=== PATIENT | female | born 1950 | race Caucasian/White ===

== ENCOUNTER → 2016-08-26 | Outpatient (CLI) | payer OTHER ==
[~2016-08-26] MED LIST: HYDR12.57 PO; LEVO50TA4 PO; MULTTAB67 PO; TAB-TAB PO
== END ==
LOC: CLAB 12:33
PROVIDERS: ATTEND Family Medicine
DX: I10 Essential (primary) hypertension (principal); E78.5 Hyperlipidemia, unspecified; N64.59 Other signs and symptoms in breast
CPT/HCPCS: 36415; 84443

== ENCOUNTER → 2016-09-27 | Outpatient (CLI) | payer OTHER ==
[~2016-09-27] MED LIST changes: -TAB-TAB PO
[2016-09-27 13:14] LABS: AUTOMATED NEUTROPHIL # 3.6 TH/MM3 (1.8-7.7); BASOPHIL # 0.1 TH/MM3 (0-0.2); BASOPHIL % 2.8 % (0.0-2.0); EOSINOPHIL # 0.2 TH/MM3 (0-0.4); EOSINOPHIL % 4.6 % (0.0-4.0); HEMATOCRIT 44.3 % (35.0-46.0); HEMO FLAGS DIFF FINAL; LYMPH % 16.5 % (9.0-44.0); LYMPHOCYTE # 0.9 TH/MM3 (1.0-4.8); MEAN CELL VOLUME 92.5 FL (80.0-100.0); MEAN CORPUSCULAR HEMOGLOBIN 30.9 PG (27.0-34.0); MEAN CORPUSCULAR HGB CONC 33.4 % (32.0-36.0); MONO % 7.8 % (0.0-8.0); NEUT % 68.3 % (16.0-70.0); PLATELET COUNT 230 TH/MM3 (150-450); RED BLOOD COUNT 4.79 MIL/MM3 (4.00-5.30); RED CELL DISTRIBUTION WIDTH 13.5 % (11.6-17.2); WHITE BLOOD COUNT 5.2 TH/MM3 (4.0-11.0)
[2016-09-27 13:44] LABS: ALT (GPT) 16 U/L (10-53); ANION GAP 9 MEQ/L (5-15); AST (GOT) 21 U/L (15-37); BICARBONATE 30.4 MEQ/L (21.0-32.0); BLOOD UREA NITROGEN 14 MG/DL (7-18); CHLORIDE 101 MEQ/L (98-107); GLOMERULAR FILTRATION RATE 74 ML/MIN (>89); GLUCOSE,FASTING 85 MG/DL (74-99); POTASSIUM 3.7 MEQ/L (3.5-5.1); SODIUM (NA) 140 MEQ/L (136-145)
[2016-09-27 13:48] LABS: ALKALINE PHOSPHATASE 88 U/L (45-117); HDL CHOLESTEROL 56.7 MG/DL (40.0-60.0); LDL CHOLESTEROL 96 MG/DL (0-99); TOTAL BILIRUBIN ADULT 0.7 MG/DL (0.2-1.0)
== END ==
LOC: PLAB 09:38
PROVIDERS: ATTEND Family Medicine
DX: I10 Essential (primary) hypertension (principal); E78.5 Hyperlipidemia, unspecified; N64.59 Other signs and symptoms in breast
CPT/HCPCS: 36415; 80053; 80061; 85025

== ENCOUNTER → 2017-03-12 | Outpatient (CLI) | payer MEDICARE, OTHER ==
[2017-03-12 16:02] LABS: BLOOD, URINE NEG (NEG); CALCIUM OXALATE CRYSTALS,URINE OCC /hpf; GLUCOSE,URINE NEG (NEG); KETONE, URINE NEG (NEG); MUCUS URINE FEW /lpf (OCC); NITRITE,URINE NEG (NEG); SQUAMOUS EPITHELIAL CELL URINE 2 /hpf (0-5); URINE COLOR YELLOW (YELLW/STRAW)
[2017-03-12 16:22] LABS: ANION GAP 4 MEQ/L (5-15); AST (GOT) 20 U/L (15-37); BICARBONATE 32.3 MEQ/L (21.0-32.0); BLOOD UREA NITROGEN 15 MG/DL (7-18); CHLORIDE 103 MEQ/L (98-107); GLOMERULAR FILTRATION RATE 76 ML/MIN (>89); GLUCOSE,FASTING 102 MG/DL (74-99); POTASSIUM 3.6 MEQ/L (3.5-5.1); SODIUM (NA) 139 MEQ/L (136-145)
[2017-03-12 16:32] LABS: ALKALINE PHOSPHATASE 89 U/L (45-117); ALT (GPT) 20 U/L (10-53); HDL CHOLESTEROL 53.6 MG/DL (40.0-60.0); LDL CHOLESTEROL 105 MG/DL (0-99); TOTAL BILIRUBIN ADULT 0.6 MG/DL (0.2-1.0)
[2017-03-15 11:52] LABS: IGA SERUM 446 mg/dL (81-463)
[2017-03-18 03:50] LABS: ENDOMYSIAL AB TITER ND (<1:5); TISSUE TRANSGLUTAMINASE AB LESS THAN 1 U/mL (())
== END ==
LOC: PLAB 11:11
PROVIDERS: ATTEND Internal Medicine
DX: E03.9 Hypothyroidism, unspecified (principal); I10 Essential (primary) hypertension; R63.6 Underweight
CPT/HCPCS: 36415; 80053; 80061; 81001; 82784; 83516; 84443

== ENCOUNTER 2018-07-19 13:20 | Observation (INO) ==
[2018-07-19] MEDS ORDERED: Sod Chloride 0.9% Inj 1,000 ML IV.SIG ONE (14:25)
[2018-07-19 15:05] LABS: Baso # (Auto) 0.1 th/mm3 (0.0-0.2); Baso % (Auto) 1.1 % (0.0-2.0); Eos # (Auto) 0.1 th/mm3 (0.0-0.4); Eos % (Auto) 0.8 % (0.0-4.0); Hematocrit 43.6 % (35.0-46.0); Hemoglobin 14.9 gm/dL (11.6-15.3); Lymph # (Auto) 0.6 th/mm3 (1.0-4.8); Lymph % (Auto) 4.7 % (9.0-44.0); Mean Corpuscular HGB Conc 34.2 % (32.0-36.0); Mean Corpuscular Hemoglobin 31.8 pg (27.0-34.0); Mean Corpuscular Volume 92.8 fL (80.0-100.0); Mean Platelet Volume 10.9 fL (7.0-11.0); Mono # (Auto) 0.4 th/mm3 (0.0-0.9); Neut # (Auto) 10.7 th/mm3 (1.8-7.7); Neut % (Auto) 90.4 % (16.0-70.0); Platelet Count 240 th/mm3 (150-450); Red Cell Distribution Width 12.7 % (11.6-17.2); White Blood Count 11.8 th/mm3 (4.0-11.0)
[2018-07-19 15:28] LABS: Anion Gap 7 meq/L (5-15); Blood Urea Nitrogen 16 mg/dL (7-18); Calcium 8.8 mg/dL (8.5-10.1); Carbon Dioxide 27.1 meq/L (21.0-32.0); Chloride 105 meq/L (98-107); Glomerular Filtration Rate 85 mL/min (>89); Glucose,Random 118 mg/dL (74-106); Sodium 139 meq/L (136-145)
[2018-07-19 15:31] LABS: Potassium 4.6 meq/L (3.5-5.1)
--- NOTE | 2018-07-19 15:57 | ED ---
HPI General Chief Complaint: Syncope Stated Complaint: Syncope Time Seen by Provider: 07/19/18 14:08 Source: patient and EMS Mode of arrival: EMS Limitations: no limitations History of Present Illness HPI narrative: 68 yo F arrives by EMS following near syncope event at [facility] today. Pt was pale, lightheaded and with perioral cyanosis. Duration approx 10 minutes. + Urge to defect prior to symptom onset resolved prior to EMS arrival. No CP or shortness of breath. Pt reports being in her normal state of health in the preceding several days. No bloody stool or black stool reported. Compliance with synthroid reported. no similar prior events. no similar prior episodes. no specific complaints offered today in ED. No actual LOC on scene. Related Data Home Medications Medication Instructions Recorded Confirmed levothyroxine [Synthroid] 12.5 mcg PO DAILY 07/19/18 07/19/18 Allergies Allergy/AdvReac Type Severity Reaction Status Date / Time No Known Allergies Allergy Verified 07/19/18 15:00 Review of Systems ROS: all other systems reviewed are negative [facility] Medical History Medical History Hx of thyroid disease (Acute) Social History Social History Substance History: No History of Abuse Smoking Status: Never smoker How Often Do You Have a Drink Containing Alcohol: Never Recent Travel in [place] within the Last 8 Weeks: No Recent Out of Country Travel within the Last 8 Weeks: No Immunization History Tetanus Immunization: <5 Years Exam Narrative Exam Narrative: GENERAL: 68 yo F pleasant, WNWD, NAD SKIN: Focused skin assessment warm/dry. HEAD: Atraumatic. Normocephalic. EYES: Pupils equal and round. No scleral icterus. No injection or drainage. ENT: No nasal bleeding or discharge. Mucous membranes pink and moist. NECK: Trachea midline. No JVD. CARDIOVASCULAR: Regular rate and rhythm. No murmur appreciated. RESPIRATORY: No accessory muscle use. Clear to auscultation. Breath sounds equal bilaterally. GASTROINTESTINAL: Abdomen soft, non-tender, nondistended. Hepatic and splenic margins not palpable. MUSCULOSKELETAL: No obvious deformities. No clubbing. No cyanosis. No edema. NEUROLOGICAL: Awake and alert. No obvious cranial nerve deficits. Motor grossly within normal limits. Normal speech. PSYCHIATRIC: Appropriate mood and affect; insight and judgment normal. Course Initial Documented Vital Signs Temperature 98.6 F 07/19/18 14:25 Pulse Rate 89 07/19/18 14:25 Respiratory Rate 25 H 07/19/18 14:25 Blood Pressure 165/85 H 07/19/18 14:25 Pulse Oximetry 100 07/19/18 14:25 Last Documented Vital Signs Temperature 98.6 F 07/19/18 14:25 Pulse Rate 92 H 07/19/18 18:00 Respiratory Rate 26 H 07/19/18 17:00 Blood Pressure 181/85 H 07/19/18 16:16 Pulse Oximetry 98 07/19/18 18:00 Medical Decision Making MDM Narrative Medical decision making narrative: ekg sinus, rate 88, normal axis/intervals pt resting comfortably in ED at time of reassessment, 429pm. HR has jumped to the 110 +/- five range. BP has been elevated at approx 180/80 Pt remains asymptomatic here Numerous prior visits on record for palpitations and weakness Persistent tachycardia here observed four hours into stay much against expectations. CT pulmonary angiogram added on. CT shows no PE. d/w Dr Oakley, concern is near syncope event with tachycardia unexplained, persistent without improvement w IVF pt agreeable with plan Medical Screen Exam Complete: Yes Emergency Medical Condition: Yes Lab Data Result diagrams: 07/19/18 14:50 07/19/18 14:50 Lab Results 07/19/18 07/19/18 07/19/18 Range/Units 14:50 14:50 15:29 WBC 11.8 H (4.0-11.0) th/mm3 RBC 4.70 (4.00-5.30) mil/mm3 Hgb 14.9 (11.6-15.3) gm/dL Hct 43.6 (35.0-46.0) % MCV 92.8 (80.0-100.0) fL MCH 31.8 (27.0-34.0) pg MCHC 34.2 (32.0-36.0) % RDW 12.7 (11.6-17.2) % Plt Count 240 (150-450) th/mm3 MPV 10.9 (7.0-11.0) fL Neut % (Auto) 90.4 H (16.0-70.0) % Lymph % (Auto) 4.7 L (9.0-44.0) % Rhea % (Auto) 3.0 (0.0-8.0) % Eos % (Auto) 0.8 (0.0-4.0) % Baso % (Auto) 1.1 (0.0-2.0) % Neut # (Auto) 10.7 H (1.8-7.7) th/mm3 Lymph # (Auto) 0.6 L (1.0-4.8) th/mm3 Rhea # (Auto) 0.4 (0.0-0.9) th/mm3 Eos # (Auto) 0.1 (0.0-0.4) th/mm3 Baso # (Auto) 0.1 (0.0-0.2) th/mm3 WBC Differential . Differential Comment Auto diff final Sodium 139 (136-145) meq/L Potassium 4.6 (3.5-5.1) meq/L Chloride 105 (98-107) meq/L Carbon Dioxide 27.1 (21.0-32.0) meq/L Anion Gap 7 (5-15) meq/L BUN 16 (7-18) mg/dL Creatinine 0.69 (0.50-1.00) mg/dL Estimated GFR 85 L (>89) mL/min Random Glucose 118 H (74-106) mg/dL Calcium 8.8 (8.5-10.1) mg/dL Troponin I Less than 0.02 L (0.02-0.05) ng/mL Urine Color Straw (Yellw/Straw) Urine Clarity Clear (Clear) Urine pH 7.0 (5.0-8.5) Ur Specific [place] 1.006 (1.002-1.035) Urine Protein Negative (Neg-Trace) mg/dL Urine Glucose (UA) Negative (Negative) mg/dL Urine Ketones Trace H (Negative) mg/dL Urine Occult Blood Negative (Negative) Urine Nitrate Negative (Negative) Urine Bilirubin Negative (Negative) Urine Urobilinogen Less than 2 (Less than 2) mg/dL Ur Leukocyte Esterase Trace H (Negative) Urine RBC 1 (0-3) /hpf Urine WBC 1 (0-5) /hpf Ur Squamous Epith Cells <1 (0-5) /hpf Urine Mucus Few H (Occasional) /lpf Micro UA Comment Culture not ind Ur Microscopic Review Not Reportable Urine Culture Comments Culture not ind Imaging Data Radiologist's impression: Chest CTA 07/19/18 17:40 CONCLUSION: There is no evidence of PE for technique. There are tiny subcentimeter densities in both lungs some of them appear nodular probably areas of scar. Discharge Plan Discharge Disposition Patient Disposition: ED Admit(ED Internal Use Only) Discharge Order Discharge Orders: ED Use Only Admit Order (Routine); Ordered 07/19/18 Ordered By: Checo Humphrey Physicians Team ED Provider: Checo Humphrey Primary Care Provider: Zackary Miller Rxs /Orders / Referrals /Forms Prescriptions: No Action levothyroxine [Synthroid] 25 mcg Tablet 12.5 mcg PO DAILY RF: 0 Discharge Interventions Interventions: Vital Signs Last Done: 07/19/18 18:00 Status ED Status: With Doctor
[2018-07-19 16:25] LABS: Bilirubin,Urine Negative (Negative); Clarity,Urine Clear (Clear); Color,Urine Straw (Yellw/Straw); Glucose,Urine (UA) Negative (Negative); Leukocyte Esterase,Urine Trace (Negative); Mucus,Urine Few /lpf (Occasional); Nitrite,Urine Negative (Negative); Specific Gravity,Urine 1.006 (1.002-1.035); Squamous Epithelial Cell,Urine <1 /hpf (0-5)
--- NOTE | 2018-07-19 18:50 | CT ---
EXAM DATE: 07/19/2018 6:37 PM EST AGE/SEX: 68 years / Female INDICATIONS: Shortness of breath. CLINICAL DATA: This is the patient's initial encounter. Patient reports that signs and symptoms have been present for 1 day and indicates a pain score of 0/10. MEDICAL/SURGICAL HISTORY: . thyroid disease None. RADIATION DOSE: 4.71 CTDI (mGy) COMPARISON: No prior exams available for comparison. TECHNIQUE: Volumetric scanning was performed using a multi-row detector CT scanner during bolus infu deborah of 60 ml Omnipaque 350 (iohexol) nonionic water-soluble contrast as a single exam dose. The dwaine a was post processed with a variety of visualization algorithms including full volume maximum intensi ty projection and sliding thin slab reformation. Using automated exposure control and adjustment of the mA and/or kV according to patient size, radiation dose was kept as low as reasonably achievable t o obtain optimal diagnostic quality images. DICOM format image data is available electronically for review and comparison. FINDINGS: There are scattered areas of scarring in the periphery of the lungs bilaterally mainly on the left si de and bilateral lower lobes could be followed. Some of these areas are minimally nodular in appearan ce. There is no pleural effusion. No appreciable pathological adenopathy is seen within the mediast inum. There is no evidence of PE for technique. CONCLUSION: There is no evidence of PE for technique. There are tiny subcentimeter densities in bot h lungs some of them appear nodular probably areas of scar. Electronically signed by: Honey Wiley MD Board Certified Radiologist 07/19/2018 6:48 PM EST
[2018-07-19] MEDS ORDERED: Bisacodyl 10 MG Supp RECTAL PRN (19:10)
[2018-07-19] MEDS ORDERED: Acetaminophen 325 MG Tablet PO PRN (19:10)
--- NOTE | 2018-07-19 20:14 | P.HPIM ---
History of Present Illness Primary Care Physician: Zackary Miller MD History of Present Illness: This is a 68-year-old female with a PMH of Hypothyroidism who was brought to the ER by EMS after a near syncopal event at [employer] today. Patient states she was feeling fine this morning, however while at [employer] developed abdominal cramping w/ loose stool, nausea and dizziness followed by near syncopal event. States she was assisted to the floor by another [employer] member who put a damp towel on her neck. No LOC per patient. Denies h/o similar events. On arrival , BP 165/85, HR 89, O2 sat 100% on RA, Afebrile. While in the ER, patient developed persistent tachycardia with HR 120's despite IVF. WBC 11.8. GFR 85. Troponin 0 0.02. UA negative for UTI. CTA Chest no evidence for PE. Pt reports she was seen by PCP in July for thyroid results, told her levels too high and had dose decreased from 112mcg to 75mcg, has been on 75mcg since Jul 10. - Diagnosis (1) Near syncope (2) Dehydration (3) Tachycardia (4) Leukocytosis Review of Systems PAST FAMILY HISTORY: Reviewed. No h/o DM or CAD All other systems reviewed negative except as stated in HPI PMFSH - History History Provided By: Patient - Medical History Medical History: Medical History (Last Updated 07/19/18 @ 14:54 by Virginia Nogueira) Hx of thyroid disease - Tobacco History Smoking Status: Never smoker - Alcohol History How Often Do You Have a Drink Containing Alcohol: Never - Substance Use History Substance History: No History of Abuse - Travel History Recent Travel in the [place] Within the Last 8 Weeks: No Recent Travel Out of the Country Within the Last 8 Weeks: No - Immunization History Tetanus Immunization: <5 Years Medications and Allergies Active Medications: Active Medications Acetaminophen (Tylenol) 650 mg PO Q4H PRN PRN Reason: Temp > 100.4 Al Hydroxide/Mg Hydroxide (Milk Of Magnesia Liq) 30 ml PO Q12H PRN PRN Reason: Mild Constipation Bisacodyl (Dulcolax Supp) 10 mg RECTAL DAILY PRN PRN Reason: SEVERE CONSITIPATION Sodium Chloride (Ns Inj) 1,000 mls @ 100 mls/hr IV.CONT .Q10H ARCHANA Lactulose (Lactulose Liq) 30 ml PO DAILY PRN PRN Reason: SEVERE CONSITIPATION Ondansetron HCl (Zofran Inj) 4 mg IV.PUSH Q6H PRN PRN Reason: NAUSEA OR VOMITING Senna/Docusate Sodium (Kari-Colace) 1 tab PO BID ARCHANA Sennosides (Senokot) 17.2 mg PO Q12H PRN PRN Reason: Moderate Constipation Sodium Chloride (Ns Flush) 2 ml IV.FLUSH BID ARCHANA Sodium Chloride (Ns Flush) 2 ml IV.FLUSH PRN PRN PRN Reason: FLUSH AFTER USING IV ACCESS Allergies Allergy/AdvReac Type Severity Reaction Status Date / Time No Known Allergies Allergy Verified 07/19/18 15:00 Home Medications Medication Instructions Recorded Confirmed Type levothyroxine [Synthroid] 12.5 mcg PO DAILY 07/19/18 07/19/18 History Exam Vital signs: Vital Signs 07/19/18 14:25 07/19/18 14:56 07/19/18 16:16 Temperature 98.6 F Pulse Rate 89 120 H Respiratory Rate 25 H 26 H Blood Pressure 165/85 H 181/85 H Pulse Oximetry 100 100 98 07/19/18 17:00 07/19/18 18:00 07/19/18 19:38 Temperature Pulse Rate 122 H 92 H 79 Respiratory Rate 26 H 16 Blood Pressure 157/68 H Pulse Oximetry 97 98 Intake & Output 07/19/18 07/19/18 07/20/18 06:59 18:59 06:59 Intake Total 1000 / 1000 50 / 50 Balance 1000 / 1000 50 / 50 Weight 40.823 kg Intake: IV 1000 / 1000 NS Inj 1,000 ML @ Wide Open IV. 1000 / 1000 SIG BOLUS ONE Rx#:[id number] Oral 50 / 50 Narrative: PE: GENERAL: Pleasant very thin middle-aged female in no acute distress. SKIN: Focused skin assessment warm and dry. HEENT: PERRLA, EOMI. No scleral icterus or conjunctival pallor. No lid lag or facial droop. CARDIOVASCULAR: Regular rate and rhythm. No obvious murmurs to auscultation. No chest tenderness to palpation. RESPIRATORY: No obvious rhonchi or wheezing. Clear to auscultation. Breath sounds equal bilaterally. GASTROINTESTINAL: Abdomen soft, non-tender, nondistended. BS normal. MUSCULOSKELETAL: Extremities without clubbing, cyanosis, or edema. No obvious deformities. NEUROLOGICAL: Awake, alert and oriented x4. No focal neurologic deficits. Moving both upper and lower extremities spontaneously. PSYCHIATRIC: Appropriate mood and affect. Insight and judgment normal. Results - Labs CBC & Chem 7: 07/19/18 14:50 07/19/18 14:50 Labs: Short CBC 07/19/18 Range/Units 14:50 WBC 11.8 H (4.0-11.0) th/mm3 Hgb 14.9 (11.6-15.3) gm/dL Hct 43.6 (35.0-46.0) % Plt Count 240 (150-450) th/mm3 BMP 07/19/18 14:50 Sodium 139 Potassium 4.6 Chloride 105 Carbon Dioxide 27.1 BUN 16 Creatinine 0.69 Calcium 8.8 Cardiac Enzymes 07/19/18 07/19/18 Range/Units 14:50 19:20 Troponin I Less than 0.02 L 0.03 (0.02-0.05) ng/mL Urine 07/19/18 Range/Units 15:29 Urine Color Straw (Yellw/Straw) Urine Clarity Clear (Clear) Urine pH 7.0 (5.0-8.5) Ur Specific [place] 1.006 (1.002-1.035) Urine Protein Negative (Neg-Trace) mg/dL Urine Glucose (UA) Negative (Negative) mg/dL - Imaging Impressions Chest CTA 07/19/18 17:40 CONCLUSION: There is no evidence of PE for technique. There are tiny subcentimeter densities in both lungs some of them appear nodular probably areas of scar. Caprini VTE Risk Assessment Caprini VTE Risk Assessment: No/Low Risk (score <= 1) Caprini Risk Assessment Model: Point Value = 1 Point Value = 2 Point Value = 3 Point Value = 5 Age 41-60 Minor surgery BMI > 25 kg/m2 Swollen legs Varicose veins or History of unexplained or recurrent spontaneous Oral contraceptives or hormone replacement Sepsis (< 1 month) Serious lung disease, including pneumonia (< 1 month) Abnormal pulmonary function Acute myocardial infarction Congestive heart failure (< 1 month) History of inflammatory bowel disease Medical patient at bed rest Age 61-74 Arthroscopic surgery Major open surgery (> 45 min) Laparoscopic surgery (> 45 min) Malignancy Confined to bed (> 72 hours) Immobilizing plaster cast Central venous access Age >= 75 History of VTE Family history of VTE Factor V Leiden Prothrombin [id number] Lupus anticoagulant Anticardiolipin antibodies Elevated serum homocysteine Heparin-induced thrombocytopenia Other congenital or acquired thrombophilia Stroke (< 1 month) Elective arthroplasty Hip, pelvis, or leg fracture Acute spinal cord injury (< 1 month) Prophylaxis Regimen: Total Risk Factor Score Risk Level Prophylaxis Regimen 0-1 Low Early ambulation 2 Moderate Order ONE of the following: *Sequential Compression Device (SCD) *Heparin 5000 units SQ BID 3-4 Higher Order ONE of the following medications: *Heparin 5000 units SQ TID *Enoxaparin/Lovenox 40 mg SQ daily (WT < 150 kg, CrCl > 30 mL/min) *Enoxaparin/Lovenox 30 mg SQ daily (WT < 150 kg, CrCl > 10-29 mL/min) *Enoxaparin/Lovenox 30 mg SQ BID (WT < 150 kg, CrCl > 30 mL/min) AND/OR *Sequential Compression Device (SCD) 5 or more Highest Order ONE of the following medications: *Heparin 5000 units SQ TID (Preferred with Epidurals) *Enoxaparin/Lovenox 40 mg SQ daily (WT < 150 kg, CrCl > 30 mL/min) *Enoxaparin/Lovenox 30 mg SQ daily (WT < 150 kg, CrCl > 10-29 mL/min) *Enoxaparin/Lovenox 30 mg SQ BID (WT < 150 kg, CrCl > 30 mL/min) AND *Sequential Compression Device (SCD) Assessment and Plan - Assessment (1) Near syncope Code(s): R55 - Syncope and collapse Status: Acute (2) Dehydration Code(s): E86.0 - Dehydration Status: Acute (3) Tachycardia Code(s): R00.0 - Tachycardia, unspecified Status: Acute (4) Leukocytosis Code(s): D72.829 - Elevated white blood cell count, unspecified Status: Acute - Plan A/P: 1. Near Syncope: acute onset of nausea, dizziness, diaphoresis followed by near syncopal event, likely vasovagal due to dehydration. No LOC or head trauma reported. Admit for Observation, telemetry, initial trop negative, check serial cardiac enzymes to eval for underlying ischemia. Check Echo to eval for valvular abnormality/cardiomyopathy. 2. Tachycardia: HR 120's while in ER despite IVF, likely due to dehydration, now normalized, HR 80-90's. CTA negative for PE. Will check TSH/T3/T4 in light of recent dose adjustment. 3. Leukocytosis: WBC 11.8, afebrile, possibly reactive however elevated neutrophil count. CTA negative for infiltrate, U/a negative, will repeat labs in am. 4. Dehydration: GFR 85, IVF for hydration, monitor I/O, repeat labs in am. 5. DVT Prophylaxis: SCD/Teds 6. Social work for d/c planning as needed. 7. Case discussed w/ ER physician at length, labs/records/imaging reviewed by me.
[2018-07-20] MEDS: Senna/Docusate Sodium 8.6/50 MG Tablet PO SCH ×4 (01:58→20:47)
[2018-07-20] MEDS: Sod Chloride 0.9% Inj 1,000 ML IV.CONT SCH ×3 (01:59→17:42)
[2018-07-20 04:11] LABS: Baso # (Auto) 0.1 th/mm3 (0.0-0.2); Baso % (Auto) 1.4 % (0.0-2.0); Eos # (Auto) 0.1 th/mm3 (0.0-0.4); Eos % (Auto) 1.3 % (0.0-4.0); Hemoglobin 13.2 gm/dL (11.6-15.3); Lymph # (Auto) 0.9 th/mm3 (1.0-4.8); Lymph % (Auto) 12.6 % (9.0-44.0); Mean Corpuscular HGB Conc 33.7 % (32.0-36.0); Mean Corpuscular Hemoglobin 31.2 pg (27.0-34.0); Mean Corpuscular Volume 92.7 fL (80.0-100.0); Mean Platelet Volume 10.3 fL (7.0-11.0); Mono # (Auto) 0.7 th/mm3 (0.0-0.9); Mono % (Auto) 9.9 % (0.0-8.0); Neut # (Auto) 5.1 th/mm3 (1.8-7.7); Neut % (Auto) 74.8 % (16.0-70.0); Platelet Count 221 th/mm3 (150-450); Red Blood Count 4.21 mil/mm3 (4.00-5.30); Red Cell Distribution Width 12.7 % (11.6-17.2); White Blood Count 6.9 th/mm3 (4.0-11.0)
[2018-07-20 04:58] LABS: Alanine Aminotransferase 18 U/L (10-53); Albumin 3.1 g/dL (3.4-5.0); Alkaline Phosphatase 83 U/L (45-117); Anion Gap 6 meq/L (5-15); Aspartate Aminotransferase 19 U/L (15-37); Blood Urea Nitrogen 9 mg/dL (7-18); Calcium 8.4 mg/dL (8.5-10.1); Carbon Dioxide 29.4 meq/L (21.0-32.0); Chloride 110 meq/L (98-107); Free T4 (Free Thyroxine) 1.43 ng/dL (0.76-1.46); Glomerular Filtration Rate Greater Than 89 mL/min (>89); Glucose,Random 88 mg/dL (74-106); Potassium 3.6 meq/L (3.5-5.1); Sodium 145 meq/L (136-145); Total Protein 7.1 g/dL (6.4-8.2); Triiodothyronine (T3) Free 3.09 pg/mL (2.18-3.98)
--- NOTE | 2018-07-20 13:11 | ECHRPT ---
Indication: SYNCOPE CONCLUSIONS Normal left ventricular size. Wall thickness is normal. The left ventricular systolic function is hyperdynamic with an estimated ejection fraction in the ra nge of 65- 70%. Moderate thickening of the mitral valve leaflets. Moderate mitral valve regurgitation. The estimated pulmonary arterial pressure is 43 mmHg. There is mild tricuspid valve regurgitation. Mild pulmonary valve regurgitation. BP: / HR: Rhythm: MEASUREMENTS (Male / Female) Normal Values Technical Quality: 2D ECHO LV Diastolic Diameter PLAX 3.1 cm 4.2 - 5.9 / 3.9 - 5.3 cm LV Systolic Diameter PLAX 2.0 cm IVS Diastolic Thickness 1.1 cm 0.6 - 1.0 / 0.6 - 0.9 cm LVPW Diastolic Thickness 0.8 cm 0.6 - 1.0 / 0.6 - 0.9 cm LV Relative Wall Thickness 0.6 RV Internal Dim ED PLAX 1.6 cm LVOT Diameter 1.5 cm LA Systolic Diameter LX 2.1 cm 3.0 - 4.0 / 2.7 - 3.8 cm LV Ejection Fraction MOD BP 75.0 % >= 55 % LV Ejection Fraction MOD 4C 73.3 % LV Ejection Fraction 4C AL 73.8 % LV Ejection Fraction MOD 2C 76.8 % LV Ejection Fraction 2C AL 77.7 % DOPPLER AV Peak Velocity 160.0 cm/s AV Peak Gradient 10.2 mmHg LVOT Peak Velocity 93.2 cm/s LVOT Peak Gradient 3.5 mmHg AV Area Cont Eq pk 1.0 cm Mitral E Point Velocity 101.0 cm/s Mitral A Point Velocity 128.0 cm/s Mitral E to A Ratio 0.8 LV E' Lateral Velocity 2.8 cm/s Mitral E to LV E' Lateral Ratio 35.7 LV E' Septal Velocity 3.8 cm/s Mitral E to LV E' Septal Ratio 26.6 TR Peak Velocity 289.0 cm/s TR Peak Gradient 33.4 mmHg Right Atrial Pressure 10.0 mmHg Pulmonary Artery Systolic Pressu 43.4 mmHg Right Ventricular Systolic Press 43.4 mmHg PV Peak Velocity 91.7 cm/s PV Peak Gradient 3.4 mmHg FINDINGS LEFT VENTRICLE Normal left ventricular size. Wall thickness is normal. The left ventricular systolic function is hyperdynamic with an estimated ejection fraction in the ra nge of 65- 70%. RIGHT VENTRICLE Normal right ventricular size and systolic function. LEFT ATRIUM The left atrial size is normal. RIGHT ATRIUM The right atrial size is normal. ATRIAL SEPTUM Normal atrial septal thickness without atrial level shunting by limited color doppler interrogation. AORTA The aortic root and proximal ascending aorta are normal in size on limited imaging. MITRAL VALVE Moderate thickening of the mitral valve leaflets. Moderate mitral valve regurgitation. AORTIC VALVE Trileaflet aortic valve. No aortic valve stenosis or regurgitation. TRICUSPID VALVE The estimated pulmonary arterial pressure is 43 mmHg. There is mild tricuspid valve regurgitation. PULMONARY VALVE Mild pulmonary valve regurgitation. VESSELS The inferior vena cava is normal in size. PERICARDIUM No pericardial effusion. Davis Reyes MD, FACC (Electronically Signed) Final Date:20 July 2018 13:10
--- NOTE | 2018-07-20 13:47 | ECG ---
Date Performed: 07/19/2018 Time Performed: 14:27:24 PTAGE: 68 years EKG: Sinus rhythm MODERATE ST DEPRESSION ABNORMAL ECG Compared to PREVIOUS TRACING sinus rate is faster ST depressions are slightly more prominent PREVIOU S TRACIN08/01/2015 10.15 DOCTOR: Joe Dockery Interpretating Date/Time 07/20/2018 13:47:47
--- NOTE | 2018-07-20 16:46 | P.PNIM ---
Subjective Interval history: Follow-up near syncope, palpitation, abdominal cramps Patient seen and examined while resting in bed. She reports severe abdominal cramping yesterday prior to her near syncopal episode. Patient reports she became diaphoretic felt dizzy and almost passed out but never lost consciousness. She states she has had 3 bowel movements today. She initially states diarrhea, however, when asked if stools are liquid or watery she states "no they are soft." Patiently currently denies any abdominal pain, nausea or vomiting. She also experienced palpitations yesterday, however, no further episodes today. Patient used to take levothyroxine 112 mcg p.o. daily but was recently told by her primary care provider to decrease to 100 mcg p.o. daily due to her TSH level being low. She states she has not yet have a chance to take the decreased dose. Patient denies any chest pain or shortness of breath. He further denies any lower extremity edema. Physical Exam Vital signs: Last Vital Signs Temp 97.5 F L 07/20/18 16:20 Pulse 74 07/20/18 16:20 Resp 20 07/20/18 16:20 BP 119/59 L 07/20/18 16:20 Pulse Ox 100 07/20/18 16:20 Intake & Output 07/18/18 07/19/18 07/20/18 07/21/18 06:59 06:59 06:59 06:59 Intake Total 1500 / 1500 1000 / 1000 Balance 1500 / 1500 1000 / 1000 Weight 40.8 kg Narrative: PE: GENERAL: Pleasant very thin middle-aged female in no acute distress. SKIN: Focused skin assessment warm and dry. HEENT: PERRLA, EOMI. No scleral icterus or conjunctival pallor. No lid lag or facial droop. CARDIOVASCULAR: Regular rate and rhythm. No obvious murmurs to auscultation. No chest tenderness to palpation. RESPIRATORY: No obvious rhonchi or wheezing. Clear to auscultation. Breath sounds equal bilaterally. GASTROINTESTINAL: Abdomen soft, non-tender, nondistended. BS normal. MUSCULOSKELETAL: Extremities without clubbing, cyanosis, or edema. No obvious deformities. NEUROLOGICAL: Awake, alert and oriented x4. No focal neurologic deficits. Moving both upper and lower extremities spontaneously. PSYCHIATRIC: Appropriate mood and affect. Insight and judgment normal. Results Labs CBC & Chem 7: 07/20/18 03:56 07/20/18 03:56 Imaging Imaging: Impressions Chest CTA 07/19/18 17:40 CONCLUSION: There is no evidence of PE for technique. There are tiny subcentimeter densities in both lungs some of them appear nodular probably areas of scar. Assessment and Plan (1) Near syncope: Code(s): R55 - Syncope and collapse Status: Acute (2) Dehydration: Code(s): E86.0 - Dehydration Status: Acute (3) Tachycardia: Code(s): R00.0 - Tachycardia, unspecified Status: Acute (4) Leukocytosis: Code(s): D72.829 - Elevated white blood cell count, unspecified Status: Acute Plan Patient is a pleasant 68-year-old female with a past medical history significant for hypothyroidism. She presented to the emergency department yesterday after a near syncopal episode while at [employer]. Patient reports severe abdominal cramping followed by diaphoresis and feeling dizzy and lightheaded. She denies passing out or losing consciousness. Near syncope -likely vasovagal -echo reviewed -> moderate mitral valve regurg and mild tricuspid and pulmonary valve regurgitation -IV fluids Tachycardia - resolved -continue tele monitoring Elevated troponin -troponin levels trending upward -repeat EKG -consult cardiology -echo -> normal left ventricular size, wall thickness normal, hyperdynamic left ventricular systolic function with EF 65-70% Hypothyroidism -TSH 0.005, free T4 1.43, free T3 3.09, TSH 3rd gen 0.446 -Levothyroxine dose recently decreased from 112 mcg to 100 mcg by her PCP. She had not yet started taking lower dose. Leukocytosis - resolved Dehydration - improved MDM: self Code: Full GI ppx: PO intake DVT ppx: SCD's, ambulation - Progress Note: Quality VTE Deep Vein Thrombosis/Pulmonary Embolism Present on Admission: No _ (1) Leukocytosis Qualifiers: Leukocytosis type:
[2018-07-20 20:43] VITALS: RESP 16
[2018-07-21] MEDS: Sod Chloride 0.9% Inj 1,000 ML IV.CONT SCH ×3 (01:22→13:23)
[2018-07-21 04:55] VITALS: O2SAT 98
--- NOTE | 2018-07-21 05:55 | MB ---
cc: Eliceo Humphrey DO DATE: 07/20/2018 REASON FOR CONSULTATION: Presyncope, elevated troponin. HISTORY OF PRESENT ILLNESS: Zonia Sage is a pleasant 68-year-old female who sees my partner, Dr. Dockery in the office and presented to [facility] after a near syncopal event. She originally saw Dr. Dockery for the first time complaining of atypical chest pain and also had orthostatic hypotension. She was scheduled to get a stress test, echo and carotids, but has not had those done. She was at [facility] yesterday morning and had a near syncopal event. She states that she had a normal morning and had a breakfast and had a bowel movement that morning. While in [facility], she was feeling fine and then started having some abdominal cramping with nausea and dizziness. She laid down on the floor and did not lose consciousness. She was given a damp towel and started feeling better. On arrival, blood pressure and heart rate were within normal range. Apparently, in the emergency room, she had . There are no rhythm strips or telemetry available at this time to review. Troponin elevated to 0.15. She had been given fluids and since that time, has been up and moving without any problems. She was recently told that her thyroid levels were too high and she was to decrease her dose and she had just recently decreased her dose the other day. PAST MEDICAL HISTORY: 1. Orthostatic hypotension. 2. Thyroid disease. SURGERIES: Denies. ALLERGIES: NO KNOWN DRUG ALLERGIES. MEDICATIONS: Synthroid 112 mcg, but supposed to decrease to 100 mcg. FAMILY HISTORY: Denies sudden cardiac within the family. SOCIAL HISTORY: Denies tobacco, alcohol or drug abuse. REVIEW OF SYSTEMS: Fourteen systems were reviewed including osteopathic. Pertinent positives and negatives above, otherwise negative. PHYSICAL EXAMINATION: VITAL SIGNS: Temperature 97.5, heart rate 74, blood pressure 119/59, respirations 20, pulse oximetry 100% on room air. GENERAL: The patient appears well, in no acute distress, alert, awake and oriented x 3. HEENT: Extraocular muscles intact. Mucous membranes moist. NECK: Supple. No JVD at 45 degrees. No carotid bruits heard bilaterally. Carotid upstroke is brisk in nature. HEART: Regular rate and rhythm. Positive first and second heart sounds with a II/ holosystolic murmur noted at the apex. LUNGS: Clear to auscultation bilaterally. No wheezes, rales or rhonchi. ABDOMEN: Soft, nontender, nondistended. No organomegaly noted. EXTREMITIES: Show no clubbing, cyanosis or edema. Femoral and distal pulses are intact bilaterally. NEUROLOGIC: No focal deficits. SKIN: Warm, dry and intact. OSTEOPATHIC: No kyphoscoliosis, lordosis or paraspinal tender points. LABORATORY DATA: Hemoglobin 13.2, hematocrit 39.0, platelets 221. Potassium 3.6, BUN 9, creatinine 0.64. Troponin 0.15. TSH less than 0.005. Free T4 1.43, free T3 3.09. Electrocardiogram (07/20/2018 at 1723 hours): Sinus rhythm, incomplete right bundle branch block, nonspecific ST-T wave changes, read as prolonged QT, although more than likely including the U wave and most likely is not prolonged. IMPRESSIONS: 1. Near syncope, most likely vasovagal. 2. Questionable history of orthostatic hypotension. 3. Previous atypical chest pain. 4. Minimally elevated troponin. 5. Unspecified tachycardia. 6. Hypothyroidism, currently on Synthroid. RECOMMENDATIONS: 1. Ms. Sage presented with a near syncopal episode, which sounds like vasovagal in nature, possibly due to abdominal pain. 2. Reviewing her office notes, it appears that she had a previous presyncopal episode, which possibly was due to orthostatic hypotension. 3. An echocardiogram has been done, which showed a normal ejection fraction of 65%-70% with moderate mitral regurgitation and mild tricuspid regurgitation. 4. She also had minimally elevated troponin of 0.15. She does have a history of atypical chest pain in the office and was scheduled for a stress test. Due to all this, I believe that she should undergo the stress test while here in the hospital. She will be n.p.o. after midnight with a plan to do this in the morning. 5. There is mention of tachycardia while in the emergency room, unfortunately, there is no telemetry strips available to show the tachycardia to determine whether this was sinus tachycardia or some other type of arrhythmia. If all testing is negative, consideration could be made for outpatient rhythm analysis. 6. Further recommendations will be made based on the hospital course. Thank you for allowing me to see Zonia Sage. If there are any questions, please do not hesitate to call. Eliceo Humphrey, DO NAGY/rw/kd , 12:57 AM , 01:08 AM
[2018-07-21] MEDS: Senna/Docusate Sodium 8.6/50 MG Tablet PO SCH (08:35)
[2018-07-21] MEDS ORDERED: Regadenoson Inj 0.4 MG/5 ML Syringe IV.PUSH ONE (09:41)
--- NOTE | 2018-07-21 11:05 | NM ---
EXAM DATE: 07/21/2018 10:46 AM EST AGE/SEX: 68 years / Female INDICATIONS:Coronary atherosclerosis. . Near syncopal episode. Chest pain with nausea and dizziness. CLINICAL DATA: This is the patient's initial encounter. Patient reports that signs and symptoms have been present for 1 day and indicates a pain score of 4/10. MEDICAL/SURGICAL HISTORY: . Thyroid disease. None. COMPARISON: POI, CTA ABDOMEN AND AORTA, 11/19/2017. . DOSE: 8.7 mCi Tc 99m Myoview at rest 25.8 mCi [id number] at stress 0.4 mg Lexiscan STRESS SYMPTOMS: Chest pressure. EJECTION FRACTION: > 70 % TECHNIQUE: The patient underwent pharmacologic stress with infusion of prescribed dose. Continuous ECG tracing was monitored during stress. Gated SPECT imaging was performed after stress and conventi onal SPECT imaging was performed at rest. The examination was performed on a SPECT/CT scanner, both attenuation and non-corrected datasets were reviewed. FINDINGS: Distribution: The maximum perfused segment at stress is in the inferior wall. Perfusion Study: The pattern of perfusion at stress is within normal limits. Gated Study: There are intact wall motion and wall thickening without hypokinetic or dyskinetic segm ents. The ejection fraction is calculated at > 70%. RISK CATEGORY: Low (<1% Annual Motality Rate) CONCLUSION: 1. Negative examination. Electronically signed by: Morgan Thibodeaux MD Board Certified Radiologist 07/21/2018 11:03 AM EST
[2018-07-21 12:06] VITALS: BP 133/70; PULSE 75; TEMP 97.9
--- NOTE | 2018-07-21 14:01 | P.PNIM ---
Subjective Interval history: Follow-up near syncope, palpitations, abdominal Patient seen and examined in her room status post stress testing. She denies any chest pain, shortness of breath, palpitations, lower extremity pain and/or edema. She further denies any abdominal discomfort, nausea or vomiting. Discussed TSH results with patient and reminded her to continue her home levothyroxine at decreased dose as recommended by her primary care provider and to follow-up for repeat studies within 4-6 weeks. Physical Exam Vital signs: Last Vital Signs Temp 97.9 F 07/21/18 12:00 Pulse 75 07/21/18 12:00 Resp 16 07/21/18 12:00 BP 133/70 07/21/18 12:00 Pulse Ox 98 07/21/18 12:00 Intake & Output 07/19/18 07/20/18 07/21/18 07/22/18 06:59 06:59 06:59 06:59 Intake Total 1500 / 1500 1840 / 1840 1000 / 1000 Balance 1500 / 1500 1840 / 1840 1000 / 1000 Weight 40.8 kg Narrative: PE: GENERAL: Pleasant very thin middle-aged female in no acute distress. SKIN: Focused skin assessment warm and dry. HEENT: PERRLA, EOMI. No scleral icterus or conjunctival pallor. No lid lag or facial droop. CARDIOVASCULAR: Regular rate and rhythm. No obvious murmurs to auscultation. No chest tenderness to palpation. RESPIRATORY: No obvious rhonchi or wheezing. Clear to auscultation. Breath sounds equal bilaterally. GASTROINTESTINAL: Abdomen soft, non-tender, nondistended. BS normal. MUSCULOSKELETAL: Extremities without clubbing, cyanosis, or edema. No obvious deformities. NEUROLOGICAL: Awake, alert and oriented x4. No focal neurologic deficits. Moving both upper and lower extremities spontaneously. PSYCHIATRIC: Appropriate mood and affect. Insight and judgment normal. Results Labs CBC & Chem 7: 07/20/18 03:56 07/20/18 03:56 Imaging Imaging: Impressions Myocardial Perfusion Scan Nuc Med 07/21/18 00:00 CONCLUSION: 1. Negative examination. Assessment and Plan (1) Near syncope: Code(s): R55 - Syncope and collapse Status: Acute (2) Dehydration: Code(s): E86.0 - Dehydration Status: Acute (3) Tachycardia: Code(s): R00.0 - Tachycardia, unspecified Status: Acute (4) Leukocytosis: Code(s): D72.829 - Elevated white blood cell count, unspecified Status: Acute Plan Patient is a pleasant 68-year-old female with a past medical history significant for hypothyroidism. She presented to the emergency department yesterday after a near syncopal episode while at [employer]. Patient reports severe abdominal cramping followed by diaphoresis and feeling dizzy and lightheaded. She denies passing out or losing consciousness. Near syncope -likely vasovagal -echo reviewed -> moderate mitral valve regurg and mild tricuspid and pulmonary valve regurgitation -cardiology consulted Tachycardia/Palpitations - resolved -CT angio chest (-) PE -pt to f/u with Cardiology outpatient for arrythmia monitoring Elevated troponin -troponin levels trended upward -consult cardiology -echo -> normal left ventricular size, wall thickness normal, hyperdynamic left ventricular systolic function with EF 65-70% -nuclear stress test 07/21/18 (-) Hypothyroidism -TSH 0.005, free T4 1.43, free T3 3.09, TSH 3rd gen 0.446 -Levothyroxine dose recently decreased from 112 mcg to 100 mcg by her PCP. She had not yet started taking lower dose. -f/u with PCP in 4-6 weeks for repeat thyroid function studies Leukocytosis - resolved Dehydration - improved MDM: self Code: Full GI ppx: PO intake DVT ppx: SCD's, ambulation Discharge patient: home Condition on discharge: stable Regular Diet as tolerated Ad Monica activity Rx written: none Follow-up with primary care physician in 1 week - Discussed Condition With: RN, patient Discharge Planning: Discharge Home Progress Note: Quality VTE Deep Vein Thrombosis/Pulmonary Embolism Present on Admission: No _ (1) Leukocytosis Qualifiers: Leukocytosis type:
--- NOTE | 2018-07-21 16:44 | ECG ---
Date Performed: 07/20/2018 Time Performed: 17:23:54 PTAGE: 68 years EKG: Sinus rhythm POSSIBLE RIGHT VENTRICULAR CONDUCTION DELAY MODERATE ST DEPRESSION PROLONGED QT INTERVAL ABNORMAL EC G INTERPRETATION BASED ON A DEFAULT AGE OF 40 YEARS PREVIOUS TRACING : 07/19/2018 14.27 Since the previous tracing, no significant change not ed DOCTOR: Benny Wilder Interpretating Date/Time 07/21/2018 16:42:25
--- NOTE | 2018-07-22 01:08 | P.PNCA ---
Subjective Interval history: No events overnight Feels well Medications and Allergies Allergies Allergy/AdvReac Type Severity Reaction Status Date / Time No Known Allergies Allergy Verified 07/19/18 15:00 Physical Exam Vital signs: Vital Signs 07/21/18 04:00 07/21/18 08:00 07/21/18 09:00 Temperature 97.6 F 96.7 F L Pulse Rate 66 68 66 Respiratory Rate 16 16 Blood Pressure 151/71 H 134/69 Pulse Oximetry 98 98 07/21/18 12:00 Temperature 97.9 F Pulse Rate 75 Respiratory Rate 16 Blood Pressure 133/70 Pulse Oximetry 98 Intake & Output 07/21/18 07/21/18 07/22/18 06:59 18:59 06:59 Intake Total 840 / 840 1000 / 1000 Balance 840 / 840 1000 / 1000 Intake: IV 1000 / 1000 NS Inj 1,000 ML @ 100 mls/hr IV 1000 / 1000 .CONT .Q10H ARCHANA Rx#:[id number] Oral 840 / 840 Other: # Voids 2 Date of Last Bowel Movement 07/20/18 07/20/18 Narrative: PE: GENERAL: Pleasant very thin middle-aged female in no acute distress. SKIN: Focused skin assessment warm and dry. HEENT: PERRLA, EOMI. No scleral icterus or conjunctival pallor. No lid lag or facial droop. CARDIOVASCULAR: Regular rate and rhythm. No obvious murmurs to auscultation. No chest tenderness to palpation. RESPIRATORY: No obvious rhonchi or wheezing. Clear to auscultation. Breath sounds equal bilaterally. GASTROINTESTINAL: Abdomen soft, non-tender, nondistended. BS normal. MUSCULOSKELETAL: Extremities without clubbing, cyanosis, or edema. No obvious deformities. NEUROLOGICAL: Awake, alert and oriented x4. No focal neurologic deficits. Moving both upper and lower extremities spontaneously. PSYCHIATRIC: Appropriate mood and affect. Insight and judgment normal. Results 07/20/18 03:56 07/20/18 03:56 Cardiac Enzymes 07/20/18 07/20/18 07/20/18 Range/Units 03:56 03:56 15:02 AST 19 (15-37) U/L Troponin I 0.04 0.15 H D (0.02-0.05) ng/mL 07/20/18 07/20/18 Range/Units 17:30 20:58 AST (15-37) U/L Troponin I 0.15 H 0.11 H (0.02-0.05) ng/mL CBC 07/20/18 Range/Units 03:56 WBC 6.9 (4.0-11.0) th/mm3 RBC 4.21 (4.00-5.30) mil/mm3 Hgb 13.2 (11.6-15.3) gm/dL Hct 39.0 (35.0-46.0) % Plt Count 221 (150-450) th/mm3 Neut # (Auto) 5.1 (1.8-7.7) th/mm3 Lymph # (Auto) 0.9 L (1.0-4.8) th/mm3 [place] # (Auto) 0.7 (0.0-0.9) th/mm3 Eos # (Auto) 0.1 (0.0-0.4) th/mm3 Baso # (Auto) 0.1 (0.0-0.2) th/mm3 Comprehensive Metabolic Panel 07/20/18 Range/Units 03:56 Sodium 145 (136-145) meq/L Potassium 3.6 D (3.5-5.1) meq/L Chloride 110 H (98-107) meq/L Carbon Dioxide 29.4 (21.0-32.0) meq/L BUN 9 (7-18) mg/dL Creatinine 0.64 (0.50-1.00) mg/dL Calcium 8.4 L (8.5-10.1) mg/dL AST 19 (15-37) U/L ALT 18 (10-53) U/L Alkaline Phosphatase 83 (45-117) U/L Total Protein 7.1 (6.4-8.2) g/dL Albumin 3.1 L (3.4-5.0) g/dL Intake and Output 07/21/18 07/21/18 07/22/18 14:59 22:59 06:59 Intake Total 1000 / 1000 Balance 1000 / 1000 Intake: IV 1000 / 1000 NS Inj 1,000 ML @ 100 mls/hr IV 1000 / 1000 .CONT .Q10H ARCHANA Rx#:[id number] Other: Date of Last Bowel Movement 07/20/18 - Imaging and Cardiology Imaging: Impressions Myocardial Perfusion Scan Nuc Med 12/18/18 00:00 CONCLUSION: 1. Negative examination. Assessment and Plan - Assessment (1) Dehydration Code(s): E86.0 - Dehydration Status: Acute (2) Near syncope Code(s): R55 - Syncope and collapse Status: Acute (3) Tachycardia Code(s): R00.0 - Tachycardia, unspecified Status: Acute - Plan 1) Near syncope Possible vasovagal due to abdominal pain Does have a history of orthostatic hypotension Up and ambulating now 2) EF 65-70%, moderate MR, mild TR 3) Nuclear stress test negative for ischemia 4) Tachycardia No rhythm strips to review If further concern, consider outpatient rhythm analysis 5) Cardiovascularly stable for discharge Will follow up with Dr. Dockery
== END 2018-07-21 15:59 | disposition home or self-care (01) ==
LOC: NEPC 13:20 → NEDA 13:20 → NEPHCDU 20:41
PROVIDERS: ADMIT Internal Medicine; ATTEND Internal Medicine